=== PATIENT | male | born 1960 | race Caucasian/White ===

== ENCOUNTER 2017-12-20 17:33 | Emergency (ER) | payer OTHER ==
--- NOTE | 2017-12-20 19:02 | EDPHY ---
H & P Stated Complaint: sharp bilat restorationism pain, body aches Time Seen by Provider: 12/20/17 19:01 HPI/ROS: CHIEF COMPLAINT: Headache HISTORY OF PRESENT ILLNESS: The patient presents to the ED with complaints of a intermittent bitemporal headache which is been occurring since of last week. The patient denies any focal numbness or weakness but does complain of some shooting neuropathic type pain in his arms and legs. He denies any complaints of fall or neck trauma. He denies any unilateral numbness or weakness. The patient denies any fever, cough or congestion. The patient states he is only able to improve his headache with ibuprofen which she has been taking around the clock for the past 5 days. The patient is not anticoagulated. He has remote history of traumatic brain injury. REVIEW OF SYSTEMS: A comprehensive 10 point review of systems is otherwise negative aside from elements mentioned in the history of present illness. Source: Patient Exam Limitations: No limitations - Medical/Surgical History Hx Asthma: No Hx Chronic Respiratory Disease: No Hx Diabetes: No Hx Cardiac Disease: No Hx Cirrhosis: No Hx Alcoholism: No Hx HIV/AIDS: No Hx Splenectomy or Spleen Trauma: No Other PMH: migraines. tbi - Social History Smoking Status: Never smoked - Physical Exam Exam: General Appearance: Alert, no distress Eyes: Pupils equal and round no pallor or injection ENT, Mouth: Mucous membranes moist Respiratory: There are no retractions, lungs are clear to auscultation Cardiovascular: Regular rate and rhythm Gastrointestinal: Abdomen is soft and nontender, no masses, bowel sounds normal Neurological: A&O, normal motor function, normal sensory exam, normal cranial nerves Skin: Warm and dry, no rashes Musculoskeletal: Neck is supple nontender, no meningeal symptoms Extremities: symmetrical, full range of motion Psychiatric: Patient is oriented X 3, there is no agitation Constitutional: Initial Vital Signs Temperature (C) 36.5 C 12/20/17 17:38 Heart Rate 94 12/20/17 17:38 Respiratory Rate 16 12/20/17 17:38 Blood Pressure 109/76 12/20/17 17:38 O2 Sat (%) 98 12/20/17 17:38 O2 Delivery Mode Room Air O2 (L/minute) 2 Allergies/Adverse Reactions: No Known Allergies Allergy (Unverified 12/20/17 17:38) Home Medications: Medication Instructions Recorded Ibuprofen 12/20/17 predniSONE [prednisone 20mg (RX)] 3 tab PO DAILY #15 tab 12/20/17 Medical Decision Making - Diagnostics Imaging Results: Imaging Impressions Head CT 12/20/17 19:28 Impression: Normal noncontrast CT of the brain. Results called to Dr. Yair Cruz at 7:50 PM at the time of the interpretation. ED Course/Re-evaluation: The patient presents to the ED for evaluation of a sharp bifrontal headache which has been constant for the past 5 days. The patient denies any fever. He had no meningeal symptoms on exam. He denies any history of fall or trauma. The patient had had improvement of his symptoms with ibuprofen only. The patient was noted to be neurologically intact. Given the duration of his headache he was taken for noncontrast head CT scan which demonstrates no acute intracranial abnormality. The patient had an IV established. He received IV pain medications and 10 mg of Decadron. I re-evaluated the patient at 8:30 p.m.. He reports his headache is feeling much better and is essentially resolved. His myalgias of also improved. His neurologic examination remains normal. He has no meningeal symptoms. He has no history of symptoms which would suggest a dissection is a etiology of his headache. Given his significant improvement I do not feel that further workup is indicated at this point time. The patient will be given a prescription for prednisone for the next 5 days. He is also given the number of our neurologist to follow up with. The patient's ESR is normal. Patient is advised to return to the ED for any fever, worsening headache, neck stiffness, numbness, weakness or other acute complaints. Differential Diagnosis: Differential diagnosis considered includes muscle tension headache, subarachnoid hemorrhage, intracranial mass, meningitis, temporal arteritis - Data Points Laboratory Results: Laboratory Results 12/20/17 19:56 12/20/17 19:56 12/20/17 12/20/17 19:56 19:56 WBC 5.31 10^3/uL 10^3/uL (3.80-9.50) RBC 4.28 10^6/uL L 10^6/uL (4.40-6.38) Hgb 13.4 g/dL L g/dL (13.7-17.5) Hct 38.4 % L % (40.0-51.0) MCV 89.7 fL fL (81.5-99.8) MCH 31.3 pg pg (27.9-34.1) MCHC 34.9 g/dL g/dL (32.4-36.7) RDW 11.9 % % (11.5-15.2) Plt Count 192 10^3/uL 10^3/uL (150-400) MPV 8.5 fL L fL (8.7-11.7) Neut % (Auto) 50.9 % % (39.3-74.2) Lymph % (Auto) 35.4 % % (15.0-45.0) [place] % (Auto) 10.4 % % (4.5-13.0) Eos % (Auto) 2.4 % % (0.6-7.6) Baso % (Auto) 0.9 % % (0.3-1.7) Nucleat RBC Rel Count 0.0 % % (0.0-0.2) Absolute Neuts (auto) 2.70 10^3/uL 10^3/uL (1.70-6.50) Absolute Lymphs (auto) 1.88 10^3/uL 10^3/uL (1.00-3.00) Absolute Monos (auto) 0.55 10^3/uL 10^3/uL (0.30-0.80) Absolute Eos (auto) 0.13 10^3/uL 10^3/uL (0.03-0.40) Absolute Basos (auto) 0.05 10^3/uL 10^3/uL (0.02-0.10) Absolute Nucleated RBC 0.00 10^3/uL 10^3/uL (0-0.01) Immature Gran % 0.0 % % (0.0-1.1) Immature Gran # 0.00 10^3/uL 10^3/uL (0.00-0.10) ESR 11 MM/HR MM/HR (0-20) Sodium 135 mEq/L mEq/L (135-145) Potassium 4.0 mEq/L mEq/L (3.3-5.0) Chloride 101 mEq/L mEq/L (97-110) Carbon Dioxide 25 mEq/l mEq/l (22-31) Anion Gap 9 mEq/L mEq/L (8-16) BUN 14 mg/dL mg/dL (7-23) Creatinine 0.9 mg/dL mg/dL (0.7-1.3) Estimated GFR > 60 Glucose 89 mg/dL mg/dL (70-100) Calcium 8.8 mg/dL mg/dL (8.5-10.4) Medications Given: Discontinued Medications Dexamethasone (Decadron Injection) 10 mg IVP EDNOW ONE Stop: 12/20/17 19:29 Last Admin: 12/20/17 20:05 Dose: 10 mg Fentanyl (Sublimaze) 50 mcg IVP EDNOW ONE Stop: 12/20/17 19:29 Last Admin: 12/20/17 20:05 Dose: 50 mcg Sodium Chloride (Ns) 1,000 mls @ 0 mls/hr IV ONCE ONE; Wide Open PRN Reason: Protocol Stop: 12/20/17 19:29 Last Admin: 12/20/17 20:05 Dose: 1,000 mls Departure - Departure Disposition: Home, Routine, Self-Care Clinical Impression: Headache Condition: Good Instructions: Acute Headache (ED) Additional Instructions: 1. Take prednisone as directed for next 5 days. 2. Return to the ED for any markedly worsening symptoms, fever, numbness, weakness, vision changes or other concerns. 3. Please follow up with our neurologist for any ongoing mild headache Referrals: Ty Lanier MD [Medical Doctor] - As per Instructions
[2017-12-20] MEDS ORDERED: DEXAMETHASONE 10 MG/ML VIAL IVP ONE (19:28)
[2017-12-20] MEDS ORDERED: NS 1,000 ML IV ONE (19:28)
[2017-12-20] MEDS ORDERED: fentaNYL 100 MCG/2 ML INJ IVP ONE (19:28)
[2017-12-20 20:05] LABS: PLATELET COUNT 192 10^3/uL (150-400)
[2017-12-20 21:10] VITALS: BP 120/69
== END 2017-12-20 21:10 | disposition home or self-care (01) ==
DX: R51 Headache (principal); E86.9 Volume depletion, unspecified
CPT/HCPCS: 96374; J1100; J3010